=== PATIENT | male | born 1985 | race Caucasian/White ===

== ENCOUNTER 2016-12-31 07:12 | Emergency (ER) | payer SELFPAY ==
[~2016-12-31] VITALS: Ht 160 cm; Wt 67.7 kg
[2016-12-31 07:25] VITALS: BP 144/85
[2016-12-31] MEDS ORDERED: KETOROLAC TROMETH 60MG/2ML VIAL IM ONE (08:45)
[2016-12-31] MEDS ORDERED: METHOCARBAMOL 500 MG TAB PO ONE (08:45)
== END 2016-12-31 09:48 | disposition home or self-care (01) ==
LOC: ER 07:12
DX: S39.012A Strain of muscle, fascia and tendon of lower back, initial encounter (principal); X58.XXXA Exposure to other specified factors, initial encounter; Y93.89 Activity, other specified; Y99.8 Other external cause status; Y92.89 Other specified places as the place of occurrence of the external cause
CPT/HCPCS: 72192; 96372; 99284; J1885